=== PATIENT | female | born 1985 | race Caucasian/White ===

== ENCOUNTER 2017-01-23 00:02 | Emergency (ER) | payer MEDICAID ==
[~2017-01-23 00:02] MED LIST: CLEOCIN HCL300 MG PO; CLONAZEPAM2 MG/TAB; CLONAZEPAM2 MG/TAB PO; DILAUDID8 MG PO; EFFEXOR37.5 MG PO; GEODON40 MG; GEODON40 MG PO; HYDROCODONE-APA1 TAB PO; SEROQUEL XR150 MG PO; SOMA350 MG PO; WELLBUTRIN XL150 M1 PO
== END 2017-01-23 00:56 | disposition home or self-care (01) ==
LOC: D.ER 00:02
DX: M25.511 Pain in right shoulder (principal)

== ENCOUNTER 2018-03-16 16:10 | Emergency (ER) | payer MEDICAID ==
[~2018-03-16] VITALS: Ht 165.1 cm; Wt 88.6 kg
[2018-03-16 16:16] VITALS: Ht 165.1 cm; Wt 88.6 kg
[2018-03-16] MEDS ORDERED: PEPCID20 MG PO (18:58)
[2018-03-16] MEDS ORDERED: TORADOL10 MG PO (18:58)
[2018-03-16 23:45] VITALS: BP 119/72
== END 2018-03-16 19:40 | disposition home or self-care (01) ==
LOC: D.ER 16:10
DX: S80.12XA Contusion of left lower leg, initial encounter (principal); X58.XXXA Exposure to other specified factors, initial encounter; Y93.89 Activity, other specified; Y92.89 Other specified places as the place of occurrence of the external cause; R12 Heartburn; F17.200 Nicotine dependence, unspecified, uncomplicated

== ENCOUNTER → 2018-10-14 | Emergency (ER) | payer SELFPAY ==
[~2018-10-14] VITALS: Ht 165.1 cm; Wt 88.6 kg
[~2018-10-14] MED LIST changes: +PEPCID20 MG PO; +PROTONIX40 MG PO; +TORADOL10 MG PO; +TYLENOL W/CODEI1 TAB PO; +ZOFRAN4 MG PO
[2018-10-14 21:12] VITALS: Ht 165.1 cm; Wt 88.6 kg
[2018-10-14 21:51] LABS: BASOPHILS 0.2 % (0-2); EOSINOPHILS 1.9 % (0-7); HEMATOCRIT 35.9 % (36.0-48.0); HEMOGLOBIN 11.8 g/dL (12-16); IMMATURE GRANULOCYTES 0.2 % (0-5); LYMPHOCYTES 34.5 % (15-50); MCH 29.5 pg (26.0-34.0); MCHC 32.9 g/dL (31.0-37.0); MCV 89.8 fL (80.0-100.0); MEAN PLATELET VOLUME 10.7 fL (7.4-10.4); MONOCYTES 7.5 % (2-11); NEUTROPHILS 55.7 % (40-80); PLATELET COUNT 161 10x3/uL (130-400); RDW 13.3 % (11.5-14.5); WBC 6.2 10x3/uL (4.8-10.8)
[2018-10-14 21:54] LABS: HCG URINE NEGATIVE (NEGATIVE)
[2018-10-14 21:55] LABS: APPEARANCE CLEAR (CLEAR); BILIRUBIN NEGATIVE (NEGATIVE); COLOR YELLOW (YELLOW); GLUCOSE NEGATIVE (NEGATIVE); KETONE NEGATIVE (NEGATIVE); NITRITE NEGATIVE (NEGATIVE); PROTEIN NEGATIVE (NEGATIVE); SPECIFIC GRAVITY 1.025 (1.005-1.020); UROBILINOGEN NORMAL (NORMAL)
[2018-10-14 21:56] LABS: BACTERIA MANY /hpf (NONE SEEN); EPITHELIAL CELLS 0-5 /hpf (0-5); RED CELLS - URINE OCC /hpf (0-5); WHITE CELLS - URINE 0-5 /hpf (0-5)
[2018-10-14 22:19] LABS: ALBUMIN 3.5 g/dL (3.4-5.0); ALKALINE PHOSPHATASE 79 U/L (46-116); ALT (SGPT) 24 U/L (10-68); AMYLASE - SERUM 44 U/L (25-115); BILIRUBIN - TOTAL 0.24 mg/dL (0.2-1.3); CALC OSMOLALITY 285 mosm/kg (275-300); CALCIUM 8.5 mg/dL (8.5-10.1); CARBON DIOXIDE 24.1 mmol/L (21.0-32.0); CHLORIDE - SERUM 105 mmol/L (98-107); GLUCOSE 98 mg/dL (74-106); LIPASE 133 U/L (73-393); POTASSIUM - SERUM 3.6 mmol/L (3.5-5.1); PROTEIN - SERUM 6.8 g/dL (6.4-8.2); SODIUM 142 mmol/L (136-145); TROPONIN-I < 0.017 ng/mL (0.000-0.060); UREA NITROGEN 21 mg/dL (7-18); eGFR NON AFRICAN AMERICAN 68 mL/min (90-120)
[2018-10-15 02:36] VITALS: BP 114/63
== END | disposition home or self-care (01) ==
LOC: D.ER 20:57
PROVIDERS: Family Medicine
DX: K29.70 Gastritis, unspecified, without bleeding (principal); R10.13 Epigastric pain; F17.200 Nicotine dependence, unspecified, uncomplicated

== ENCOUNTER 2019-04-15 17:26 | Emergency (ER) | payer SELFPAY ==
[~2019-04-15] VITALS: Ht 165.1 cm; Wt 85.9 kg
[2019-04-15 17:59] VITALS: Ht 165.1 cm; Wt 85.9 kg
[2019-04-15] MEDS ORDERED: ROBAXIN500 MG PO (20:57)
[2019-04-15] MEDS ORDERED: ULTRAM50 MG PO (20:57)
[2019-04-15 22:23] VITALS: BP 101/82
== END 2019-04-15 22:23 | disposition home or self-care (01) ==
LOC: D.ER 17:26
DX: S16.1XXA Strain of muscle, fascia and tendon at neck level, initial encounter (principal); X50.0XXA Overexertion from strenuous movement or load, initial encounter; Y93.89 Activity, other specified; Y92.89 Other specified places as the place of occurrence of the external cause; S46.912A Strain of unspecified muscle, fascia and tendon at shoulder and upper arm level, left arm, initial encounter

== ENCOUNTER 2020-02-01 14:29 | Emergency (ER) | payer OTHER ==
[~2020-02-01] VITALS: Ht 165.1 cm; Wt 89.1 kg
[~2020-02-01 14:29] MED LIST changes: +ACETAMINOPHEN500 M1 PO; +FLAGYL500 MG PO; +HYDROCODON-ACE1 EAC7 PO; +IBUPROFEN800 MG PO; +KLONOPIN1 MG PO; +MACROBID100 MG PO; +MELATONIN10 M1 PO; +NORCO-7.51 TAB PO; +ROBAXIN500 MG PO; +ULTRAM50 MG PO
[2020-02-01 15:13] VITALS: BP 129/74; Ht 165.1 cm; Wt 89.1 kg
[2020-02-01] MEDS ORDERED: VOLTAREN75 MG PO (16:21)
[2020-02-01] MEDS ORDERED: BACLOFEN20 M1 PO (16:21)
== END 2020-02-01 17:49 | disposition home or self-care (01) ==
LOC: D.ER 14:29
DX: S16.1XXA Strain of muscle, fascia and tendon at neck level, initial encounter (principal); M62.838 Other muscle spasm; V89.2XXA Person injured in unspecified motor-vehicle accident, traffic, initial encounter; Y93.9 Activity, unspecified; Y92.9 Unspecified place or not applicable

== ENCOUNTER 2020-02-17 20:51 | Emergency (ER) | payer OTHER ==
[~2020-02-17] VITALS: Ht 165.1 cm; Wt 88.5 kg
[~2020-02-17 20:51] MED LIST changes: +BACLOFEN20 M1 PO; +VOLTAREN75 MG PO
[2020-02-17 21:02] VITALS: Ht 165.1 cm; Wt 88.5 kg
[2020-02-17 21:15] LABS: BASOPHILS 0.2 % (0-2); EOSINOPHILS 0.7 % (0-7); HEMATOCRIT 38.4 % (36.0-48.0); HEMOGLOBIN 12.7 g/dL (12-16); IMMATURE GRANULOCYTES 0.2 % (0-5); LYMPHOCYTES 34.4 % (15-50); MCH 30.5 pg (26.0-34.0); MCHC 33.1 g/dL (31.0-37.0); MCV 92.3 fL (80.0-100.0); MEAN PLATELET VOLUME 10.2 fL (7.4-10.4); MONOCYTES 11.1 % (2-11); NEUTROPHILS 53.4 % (40-80); PLATELET COUNT 202 10x3/uL (130-400); RBC 4.16 10x6/uL (4.00-5.40); RDW 13.3 % (11.5-14.5); WBC 5.8 10x3/uL (4.8-10.8)
[2020-02-17 21:22] LABS: CALC OSMOLALITY 272 mosm/kg (275-300); CALCIUM 8.9 mg/dL (8.5-10.1); CARBON DIOXIDE 26.4 mmol/L (21.0-32.0); CHLORIDE - SERUM 104 mmol/L (98-107); CREATININE - SERUM 1.1 mg/dL (0.6-1.3); GLUCOSE 93 mg/dL (74-106); POTASSIUM - SERUM 3.6 mmol/L (3.5-5.1); SODIUM 137 mmol/L (136-145); UREA NITROGEN 11 mg/dL (7-18); eGFR NON AFRICAN AMERICAN 60 mL/min (90-120)
[2020-02-17 21:30] LABS: APTT 27.6 SECONDS (22.8-39.4); INR 0.96 (0.85-1.17); PROTIME 12.7 SECONDS (11.6-15.0)
[2020-02-17 21:37] LABS: ALBUMIN 3.8 g/dL (3.4-5.0); ALKALINE PHOSPHATASE 80 U/L (30-120); ALT (SGPT) 41 U/L (10-68); BILIRUBIN - TOTAL 0.28 mg/dL (0.2-1.3); CKMB 0.6 U/L (0.0-3.6); CREATINE KINASE 125 UL (21-215); MAGNESIUM - SERUM 2.1 mg/dL (1.8-2.4); PROTEIN - SERUM 7.5 g/dL (6.4-8.2); TROPONIN-I < 0.017 ng/mL (0.000-0.060)
[2020-02-17 22:46] LABS: BILIRUBIN NEGATIVE (NEGATIVE); GLUCOSE NEGATIVE (NEGATIVE); KETONE NEGATIVE (NEGATIVE); NITRITE NEGATIVE (NEGATIVE); SPECIFIC GRAVITY 1.025 (1.005-1.020); UROBILINOGEN NORMAL (NORMAL)
[2020-02-17 22:49] LABS: BACTERIA MODERATE /hpf (NEGATIVE); RED CELLS - URINE 0-5 /hpf (0-5)
[2020-02-17] MEDS ORDERED: FLUTICASONE PRO16 GM NASAL (22:54)
[2020-02-17] MEDS ORDERED: CEFUROXIME500 MG PO (22:54)
[2020-02-17] MEDS ORDERED: MECLIZINE HCL25 MG PO (23:00)
[2020-02-18 00:14] VITALS: BP 109/63
== END 2020-02-18 00:04 | disposition home or self-care (01) ==
LOC: D.ER 20:51
PROVIDERS: Family Medicine
DX: R07.9 Chest pain, unspecified (principal); J32.9 Chronic sinusitis, unspecified; N39.0 Urinary tract infection, site not specified; R42 Dizziness and giddiness; R51 Headache; R53.81 Other malaise; Z72.0 Tobacco use